=== PATIENT | female | born 1955 | race Caucasian/White ===

== ENCOUNTER 2018-11-02 06:18 | Emergency (ER) | payer OTHER ==
[2018-11-02 06:29] VITALS: BMI 31.7
[2018-11-02] MEDS ORDERED: SODIUM CHLORIDE 0.9% 1000 ML INFUS.BAG IV ONE (07:38)
[2018-11-02] MEDS ORDERED: METOCLOPRAMIDE HCL INJECTION 10 MG/2 ML VIAL IVPB ONE (07:38)
[2018-11-02 08:24] LABS: BASO % 0.3 % (0-2.0); EOS % 0.1 % (0-4.5); HEMATOCRIT 36.9 % (32.4-45.2); HEMOGLOBIN 11.8 GM/dL (10.7-15.3); LYMPH % 19.1 % (8-40); MCH 25.7 pg (25.7-33.7); MEAN CELL VOLUME 80.2 fl (80-96); MEAN PLT VOLUME 8.3 fl (7.5-11.1); MONO % 6.1 % (3.8-10.2); NEUT % 74.4 % (42.8-82.8); PLATELET COUNT 311 K/MM3 (134-434); RDW 15.4 % (11.6-15.6); WHITE BLOOD COUNT 12.2 K/mm3 (4.0-10.0)
--- NOTE | 2018-11-02 08:25 | PDOC ---
History of Present Illness - General Chief Complaint: Weakness Stated Complaint: SUGAR PROBLEM Time Seen by Provider: 11/02/18 07:30 History Source: Patient Exam Limitations: No Limitations - History of Present Illness Initial Comments: 11/02/18 08:19 63F with a PMH of breast cancer, hypertension (is noncompliant with meds), asthma, and DM who presents to the ER with 12 hour complaints of weakness. The patient states that she's had progressive generalized weakness that started last night with nausea and a headache. The patient describes a slow onset, generalized headache without changes in vision, numbness, tingling, or focal weakness. She cannot describe the headache further. She denies CP, SOB, fever, chills, abdominal pain, cough, dysuria, but admits to mild congestion. Past History - Past Medical History Allergies/Adverse Reactions: Allergies Allergy/AdvReac Type Severity Reaction Status Date / Time chocolate flavor Allergy Verified 11/02/18 06:27 sweet almond Allergy Verified 11/02/18 06:27 Home Medications: Ambulatory Orders Acetaminophen [Tylenol -] 500 mg PO BID PRN 11/02/18 Aspirin 81 mg PO DAILY 11/02/18 Fluticasone Propionate [Flovent Diskus] 2 spray IH DAILY 11/02/18 Insulin (Levemir) [Levemir Vial] 70 unit SQ DAILY 11/02/18 Metformin HCl [Glucophage] 1,000 mg PO BID 11/02/18 Montelukast Sodium [Singulair] 10 mg PO HS 11/02/18 Omeprazole 40 mg PO DAILY 11/02/18 Asthma: Yes Cancer: Yes (BREAST) COPD: No Diabetes: Yes HTN: Yes - Suicide/Smoking/Psychosocial Hx Smoking History: Never smoked Hx Alcohol Use: No Drug/Substance Use Hx: No Substance Use Type: None Hx Substance Use Treatment: No Review of Systems - Review of Systems Able to Perform ROS?: Yes Comments:: 11/02/18 10:33 GENERAL/CONSTITUTIONAL: + for generalized weakness. No fever or chills. HEAD, EYES, EARS, NOSE AND THROAT: No change in vision. No ear pain or discharge. No sore throat. CARDIOVASCULAR: No chest pain, palpitations, or lightheadedness. RESPIRATORY: No cough, wheezing, shortness of breath, or hemoptysis. GASTROINTESTINAL: + for nausea and vomiting. No abdominal pain, diarrhea, or constipation. GENITOURINARY: No dysuria, frequency, hematuria, or change in urination. MUSCULOSKELETAL: No joint or muscle swelling or pain. No neck or back pain. SKIN: No rash or lesions. NEUROLOGIC: + for h/a. No numbness, tingling, focal weakness, loss of consciousness, or change in strength/sensation. Is the patient limited Indonesian proficient: No *Physical Exam - Vital Signs Last Vital Signs Temp Pulse Resp BP Pulse Ox 97.6 F 63 16 106/71 96 11/02/18 06:45 11/02/18 06:45 11/02/18 06:45 11/02/18 06:45 11/02/18 06:45 - Physical Exam Comments: 11/02/18 10:34 GENERAL: Well developed, well nourished. Awake and alert. No acute distress. HEENT: Normocephalic, atraumatic. Hearing grossly normal. Moist mucous membranes. PERRLA, EOMI. No conjunctival pallor. Sclera are non-icteric. NECK: Supple. Full ROM. No JVD. CARDIOVASCULAR: Regular rate and rhythm. No murmurs, rubs, or gallops. PULMONARY: No evidence of respiratory distress. Lungs clear to auscultation bilaterally. No wheezing, rales or rhonchi. ABDOMINAL: Soft. Mild tenderness to deep palpation in epigastrium. Non- distended. No rebound or guarding. GENITOURINARY: No CVA tenderness bilaterally. MUSCULOSKELETAL: Normal range of motion at all joints. No bony deformities or tenderness. EXTREMITIES: No cyanosis. No clubbing. No edema. No calf tenderness or swelling. SKIN: Warm and dry. Normal capillary refill. No rashes. No jaundice. NEUROLOGICAL: Alert, awake, appropriate. Cranial nerves 2-12 grossly intact. Normal speech. Gait is normal without ataxia. PSYCHIATRIC: Cooperative. Good eye contact. Appropriate mood and affect. ED Treatment Course - LABORATORY CBC & Chemistry Diagram: 11/02/18 08:00 11/02/18 08:00 - ADDITIONAL ORDERS Additional order review: Laboratory Results 11/02/18 07:31 POC Glucometer 138 11/02/18 07:31 POC Glucometer 138 - RADIOLOGY Radiology Studies Ordered: Category Date Time Status CHEST PA & LAT [RAD] Stat Radiology 11/02/18 07:42 Ordered Medical Decision Making - Medical Decision Making 11/02/18 10:34 63F with a PMH of HTN, DM, asthma who presents with generalized weakness and PE remarkable only for very mild epigastric TTP. Incoming vitals WNL. Pt well appearing. CXR negative. Labs including UA and troponin negative. Pt has had weakness since yesterday and if ACS would have shown a troponin as of now so will r/o with 1 troponin and baseline EKG for pt. Will PO challenge and reassess. 11/02/18 11:39 Labs and CXR WNL. Pt states she feels better. Nontender abd exam. Tolerated PO. Will d/c with PCP f/u. *DC/Admit/Observation/Transfer Diagnosis at time of Disposition: Headache Qualifiers: Headache type: unspecified Headache chronicity pattern: acute headache Intractability: not intractable Qualified Code(s): R51 - Headache Nausea & vomiting Qualifiers: Vomiting type: unspecified Vomiting Intractability: unspecified Qualified Code( s): R11.2 - Nausea with vomiting, unspecified - Discharge Dispostion Disposition: HOME Condition at time of disposition: Stable Decision to Admit order: No - Referrals Referrals: Martha Connolly MD [Primary Care Provider] - - Patient Instructions Printed Discharge Instructions: DI for Viral Gastroenteritis -- Adult Additional Instructions: Your ER visit is not complete until your follow up with your primary care physician. Please follow up with your primary care physician in 1-2 days. Please return to the ER if you have any signs or symptoms of chest pain, shortness of breath, uncontrollable fever, chills, nausea, vomiting, numbness, tingling, or weakness in any part of your body, changes in vision, or slurred speech. Please take your medications as prescribed. Please return to the ER if symptoms persist, worsen, or new symptoms arise. - Post Discharge Activity
[2018-11-02 08:35] LABS: ALBUMIN 3.9 g/dl (3.4-5.0); BILIRUBIN,TOTAL 0.4 mg/dL (0.2-1); BLOOD UREA NITROGEN 18.5 mg/dL (7-18); CREATININE 0.9 mg/dL (0.55-1.3); POTASSIUM 4.4 mmol/L (3.5-5.1); TOT PROT 7.1 g/dl (6.4-8.2)
[2018-11-02] MEDS ORDERED: METOCLOPRAMIDE HCL INJECTION 10 MG/2 ML VIAL ONE (08:41)
[2018-11-02 09:17] LABS: URINE APPEARANCE Clear; URINE BILIRUBIN Negative (NEGATIVE); URINE COLOR Yellow; URINE GLUCOSE (UA) 1+ (NEGATIVE); URINE KETONE Trace (NEGATIVE); URINE LEUK ESTERASE Negative (NEGATIVE); URINE NITRITE Negative (NEGATIVE); URINE PROTEIN 1+ (NEGATIVE); URINE UROBILINOGEN 0.2 mg/dL (0.2-1.0)
[2018-11-02 09:24] LABS: EPI CELLS 1.4 /HPF (0-5/HPF); HYALINE CASTS 3.36 /lpf (0-8); URINE RBC 1.3 /hpf (0-4); URINE WBC 0.9 /hpf (0-5)
--- NOTE | 2018-11-02 09:58 | PDOC ---
Attending Attestation - Resident Resident Name: BinhJewel guthrie - ED Attending Attestation I have performed the following: I have examined & evaluated the patient, The case was reviewed & discussed with the resident, I agree w/resident's findings & plan, Exceptions are as noted - HPI HPI: 63 yo F history breast CA, HTN, asthma, DM presents with 12 hour history of weakness. She states she had nausea, multiple episodes of vomiting and diarrhea , which has improved today. C/o mild epigastric pain today. No prior history PUD , no prior endoscopy. She states she is hungry at present. - Physicial Exam PE: GENERAL: Awake, alert, and fully oriented, in no acute distress HEAD: No signs of trauma EYES: PERRLA, EOMI, sclera anicteric, conjunctiva clear ENT: Auricles normal inspection, hearing grossly normal, nares patent, oropharynx clear without exudates. Moist mucosa NECK: Normal ROM, supple, no lymphadenopathy, JVD, or masses LUNGS: Breath sounds equal, clear to auscultation bilaterally. No wheezes, and no crackles HEART: Regular rate and rhythm, normal S1 and S2, no murmurs, rubs or gallops ABDOMEN: Soft, nontender, normoactive bowel sounds. No guarding, no rebound. No masses EXTREMITIES: Normal range of motion, no edema. No clubbing or cyanosis. No cords, erythema, or tenderness NEUROLOGICAL: Cranial nerves II through XII grossly intact. Normal speech, normal gait. Motor and sensation intact SKIN: Warm, dry, normal turgor, no rashes or lesions noted. - Medical Decision Making Pt with weakness, N/V/D. Improved with IV fluids, GI cocktail. No signs of acute abdomen.
[2018-11-02] MEDS ORDERED: FAMOTIDINE 20 MG/50 ML IVPB 20 MG/50 ML MG IVPB ONE ×2 (10:15→10:30)
[2018-11-02 12:08] VITALS: BP 106/70; PULSE 60; TEMP 97.8
--- NOTE | 2018-11-03 18:53 | EKG ---
Test Reason : Blood Pressure : / mmHG Vent. Rate : 055 BPM Atrial Rate : 055 BPM P-R Int : 146 ms QRS Dur : 086 ms QT Int : 434 ms P-R-T Axes : 037 -27 -07 degrees QTc Int : 415 ms SINUS BRADYCARDIA MINIMAL VOLTAGE CRITERIA FOR LVH, MAY BE NORMAL VARIANT T WAVE ABNORMALITY, CONSIDER ANTERIOR ISCHEMIA ABNORMAL ECG WHEN COMPARED WITH ECG OF 10-DEC-2015 07:08, VENT. RATE HAS DECREASED BY 41 BPM Confirmed by BOBBY HUGHES MD ([id number]) on 11/03/2018 6:52:57 PM Referred By: Confirmed By:BOBBY HUGHES MD
== END 2018-11-02 12:11 | disposition home or self-care (01) ==
LOC: JER 06:18
PROC: 3E033GC Introduction of Other Therapeutic Substance into Peripheral Vein, Percutaneous Approach (ICD-10-PCS; principal; 2018-11-02)
PROC: 3E0337Z Introduction of Electrolytic and Water Balance Substance into Peripheral Vein, Percutaneous Approach (ICD-10-PCS; 2018-11-02)
DX: R51 Headache (principal); R11.2 Nausea with vomiting, unspecified; I10 Essential (primary) hypertension; E11.9 Type 2 diabetes mellitus without complications; J45.909 Unspecified asthma, uncomplicated
CPT/HCPCS: 36415; 71046-TC-FY; 80053; 81003; 82550; 82962; 83690; 84484; 85025; 87086; 93005; 93010; 96361; 96365; 96375; 99285-25; J7030

== ENCOUNTER 2018-11-06 13:55 | Inpatient (IN) | payer OTHER ==
[2018-11-06] MEDS ORDERED: FAMOTIDINE 20 MG/50 ML IVPB 20 MG/50 ML MG IVPB ONE ×2 (14:37→14:48)
[2018-11-06] MEDS ORDERED: SODIUM CHLORIDE 0.9% 500 ML INFUS.BAG IV ONE (14:37)
--- NOTE | 2018-11-06 14:40 | PDOC ---
History of Present Illness - General Chief Complaint: Weakness Stated Complaint: WEAKNESS Time Seen by Provider: 11/06/18 14:13 History Source: Patient Exam Limitations: No Limitations - History of Present Illness Initial Comments: 11/06/18 14:40 Flori Allen is a 63yF w PMHx of breast cancer s/p mastectomy, HTN, T2D presenting w generalized weakness. Weakness for 1 week, associated poor appetite , daily vomiting 1-3x/day, loose stools. Currently not nauseous. Was seen on 11/02 at [facility] for similar symptoms, diagnosed w gastritis. Pain unchanged from that visit. Referred from PCP today during f/u to ER for further mgmt. Denies fever, headache, cough, SOB, chest/AB pain, urinary changes. Reports feeling lonely living at home by herself, long time ago. Diagnosed w depression after . Endorses increased forgetfulness. Denies homicidal/suicidal ideation. Past History - Travel Traveled outside of the country in the last 30 days: No - Past Medical History Allergies/Adverse Reactions: Allergies Allergy/AdvReac Type Severity Reaction Status Date / Time chocolate flavor Allergy Verified 11/06/18 14:17 sweet almond Allergy Verified 11/06/18 14:17 Home Medications: Ambulatory Orders Acetaminophen [Tylenol -] 500 mg PO BID PRN 11/02/18 Aspirin 81 mg PO DAILY 11/02/18 Fluticasone Propionate [Flovent Diskus] 2 spray IH DAILY 11/02/18 Insulin (Levemir) [Levemir Vial] 70 unit SQ DAILY 11/02/18 Metformin HCl [Glucophage] 1,000 mg PO BID 11/02/18 Montelukast Sodium [Singulair] 10 mg PO HS 11/02/18 Omeprazole 40 mg PO DAILY 11/02/18 Asthma: Yes Cancer: Yes (BREAST) COPD: No Diabetes: Yes HTN: Yes - Suicide/Smoking/Psychosocial Hx Smoking History: Never smoked Have you smoked in the past 12 months: No Information on smoking cessation initiated: No Hx Alcohol Use: No Drug/Substance Use Hx: No Substance Use Type: None Hx Substance Use Treatment: No Review of Systems - Review of Systems Constitutional: Yes: Weakness. No: Chills, Fever HEENTM: No: Eye Pain, Ear Pain, Nose Pain, Throat Pain, Mouth Pain Respiratory: No: Cough, Shortness of Breath Cardiac (ROS): No: Chest Pain, Palpitations, Syncope, Chest Tightness ABD/GI: Yes: Diarrhea (loose stool), Nausea, Poor Appetite, Poor Fluid Intake, Vomiting. No: Abdominal Distended, Constipated : No: Burning, Dysuria, Discharge, Flank Pain, Hematuria, Incontinence Musculoskeletal: No: Back Pain, Joint Pain, Muscle Pain, Muscle Weakness Integumentary: No: Bruising, Change in Color, Flushing, Lesions Neurological: No: Headache, Numbness, Seizure, Tingling, Tremors Psychiatric: Yes: Depression, Change in Appetite (reduced). No: Anxiety, Frequent Crying, Sleep Pattern Change, Mood Swings Endocrine: No: Excessive Sweating, Flushing, Intolerance to Cold, Intolerance to Heat Hematologic/Lymphatic: No: Anemia, Blood Clots, Easy Bleeding *Physical Exam - Vital Signs Last Vital Signs Temp Pulse Resp BP Pulse Ox 98.1 F 70 16 90/66 100 11/06/18 14:00 11/06/18 14:00 11/06/18 14:00 11/06/18 14:00 11/06/18 14:15 - Physical Exam General Appearance: Yes: Nourished, Appropriately Dressed. No: Apparent Distress HEENT: positive: EOMI, HIGINIO, Normal Voice, Hearing Grossly Normal. negative: Pale Conjunctivae, Scleral Icterus (R), Scleral Icterus (L), Rhinorrhea, Sinus Tenderness Respiratory/Chest: positive: Lungs Clear, Normal Breath Sounds. negative: Chest Tender, Respiratory Distress, Accessory Muscle Use, Crackles, Rales, Rhonchi, Stridor Cardiovascular: positive: Regular Rhythm, Regular Rate, S1, S2. negative: Edema , Murmur Gastrointestinal/Abdominal: positive: Normal Bowel Sounds, Tender (mild discomfort epigastric region), Flat, Soft. negative: Organomegaly, Distended, Guarding, Rebound, Mass Musculoskeletal: positive: Normal Inspection Integumentary: positive: Normal Color, Dry Neurologic: positive: technical project manager II-XII NML intact, Fully Oriented, Alert, Normal Response, Responsive. negative: Sensory Deficit, Confused, Disoriented ED Treatment Course - LABORATORY CBC & Chemistry Diagram: 11/06/18 15:06 11/06/18 15:06 - RADIOLOGY Radiology Studies Ordered: Category Date Time Status CHEST PA & LAT [RAD] Stat Radiology 11/06/18 14:36 Ordered Medical Decision Making - Medical Decision Making 11/06/18 14:38 CBC CMP trop lipase TSH UA Ucx CXR EKG pepcid 1L NS RUQ US showed multiple gallbladder cholelithiasis, contracted gallbladder without cholangitis, hepatic steatosis. EKG shows sinus bradycardia w L axis deviation and nonspecific T wave flattening BG 143, UA trace ketones, 1+ protein, bilirubin w/o bacteria/WBC Flori Allen is a 63yF w PMHx of breast cancer s/p mastectomy, HTN, T2D presenting w generalized weakness and epigastric pain. Consider gastroenteritis based on epigastric discomfort and loose stools. Consider depression (4 positive criteria reduced energy/concentration/appetite/activity). Blood glucose slightly elevated, not ACS based on EKG and negative troponin. No signs of infection on UA. RUQ US showed multiple gallbladder cholelithiasis, contracted gallbladder without cholangitis, hepatic steatosis. Given pepcid and 1L NS with some symptom relief. Admit to med/surg for generalized weakness, epigastric pain, continued vomiting , cholelithiasis in setting of past cancer hx, failed outpatient mgmt PCP Alo *DC/Admit/Observation/Transfer Diagnosis at time of Disposition: Hepatic steatosis, Epigastric pain, Weakness Cholelithiasis Qualifiers: Cholelithiasis location: gallbladder Cholecystitis presence: without cholecystitis Biliary obstruction: without biliary obstruction Qualified Code(s) : K80.20 - Calculus of gallbladder without cholecystitis without obstruction Vomiting Qualifiers: Vomiting type: unspecified Vomiting Intractability: intractable Nausea presence : with nausea Qualified Code(s): R11.2 - Nausea with vomiting, unspecified - Discharge Dispostion Condition at time of disposition: Improved - Referrals Referrals: Martha Connolly MD [Primary Care Provider] - - Patient Instructions - Post Discharge Activity
[2018-11-06 16:12] LABS: BASO % 0.3 % (0-2.0); EOS % 3.1 % (0-4.5); HEMATOCRIT 39.7 % (32.4-45.2); HEMOGLOBIN 12.6 GM/dL (10.7-15.3); LYMPH % 30.9 % (8-40); MCH 25.7 pg (25.7-33.7); MCHC 31.7 g/dl (32.0-36.0); MEAN CELL VOLUME 80.9 fl (80-96); MEAN PLT VOLUME 8.8 fl (7.5-11.1); MONO % 5.6 % (3.8-10.2); NEUT % 60.1 % (42.8-82.8); PLATELET COUNT 325 K/MM3 (134-434); RBC 4.91 M/mm3 (3.60-5.2); RDW 15.2 % (11.6-15.6); WHITE BLOOD COUNT 9.6 K/mm3 (4.0-10.0)
--- NOTE | 2018-11-06 16:15 | PDOC ---
Attending Attestation - Resident Resident Name: Geoff,Maxwell - ED Attending Attestation I have performed the following: I have examined & evaluated the patient, The case was reviewed & discussed with the resident, I agree w/resident's findings & plan - HPI HPI: 11/06/18 16:09 63y/o F h/o breast ca, diabetes p/w about 1 week of progressive generalized weakness and fatigue. no syncope, but reports generalized malaise, decreased appetite, nbnb emesis yesterday. epigastric discomfort with fatigue on exertion but no cp/sob. no f/c, + wt loss over 3 months, no night sweats. followed with Dr. Prajapati today who felt she looked unwell so referred back to ED for admission. - Physicial Exam PE: 11/06/18 16:11 vss alert, nad, no jaundice or pallor slighty dry mucosa heart regular, lungs clear abd soft/nd. mild epigastric discomfort radiating to RUQ, no guarding/rebound no edema neuro nl - Medical Decision Making 11/06/18 16:15 63y/o F diabetic with nonspecific but progressive generalized weakness for one week. ddx broad, ? infectious v. metabolic, r/o dka. labs, ua ekg, cxr ruq u/s admit Heart Score/ECG Review #1 ECG reviewed & interpreted by me at: 15:01 General ECG Interpretation: Sinus Rhythm, Normal Rate (54), Normal Intervals ( qtc 426, LVH), No acute ischemic changes (nonspecific t wave flattening)
[2018-11-06 16:33] LABS: ALBUMIN 3.4 g/dl (3.4-5.0); ALK PHOS 91 U/L (45-117); ANION GAP 13 MMOL/L (8-16); BILIRUBIN,TOTAL 0.4 mg/dL (0.2-1); BLOOD UREA NITROGEN 16.3 mg/dL (7-18); CALCIUM 9.7 mg/dL (8.5-10.1); CHLORIDE 105 mmol/L (98-107); CO2 28 mmol/L (21-32); GLUCOSE,RANDOM 143 mg/dL (74-106); POTASSIUM 3.9 mmol/L (3.5-5.1); SGOT/AST 28 U/L (15-37); SGPT/ALT 52 U/L (13-61); SODIUM 147 mmol/L (136-145); TOT PROT 6.4 g/dl (6.4-8.2)
[2018-11-06 16:40] LABS: EPI CELLS 2.9 /HPF (0-5/HPF); HYALINE CASTS 21 /lpf (0-8); PH,URINE 5.5 (5.0-8.0); URINE APPEARANCE CLOUDY; URINE BACTERIA 11.3 /hpf (NEGATIVE); URINE BILIRUBIN 1+ (NEGATIVE); URINE COLOR DK YELLOW; URINE GLUCOSE (UA) TRACE (NEGATIVE); URINE KETONE TRACE (NEGATIVE); URINE LEUK ESTERASE NEGATIVE (NEGATIVE); URINE NITRITE NEGATIVE (NEGATIVE); URINE PROTEIN 1+ (NEGATIVE); URINE RBC 5 /hpf (0-4); URINE WBC 3 /hpf (0-5)
[2018-11-06] MEDS: ACETAMINOPHEN 325 MG TABLET (FP) PO PRN (21:54)
[2018-11-06] MEDS ORDERED: INSULIN (NOVOLOG) ASPART 100 UNITS/ML 10ML VIAL ONE (22:01)
[2018-11-06] MEDS: INSULIN SLIDING SCALE (NOVOLOG) 1 VIAL SQ SCH (22:04)
[2018-11-06] MEDS: SODIUM CHLORIDE 0.45% 1,000 ML IV SCH (23:00)
[2018-11-06 23:25] VITALS: BMI 30.7
--- NOTE | 2018-11-06 23:44 | PN ---
Teaching Attending Note Name of Resident: Yael Chance ATTENDING PHYSICIAN STATEMENT I saw and evaluated the patient. I reviewed the resident's note and discussed the case with the resident. I agree with the resident's findings and plan as documented. SUBJECTIVE: 63F with breast cancer s/p lumpectomy,s/p hysterectomy, hypertension, asthma, and DM c/o one week of nausea, yellowish, nonbloody vomiting, loss of appetite, general malaise, and some epigastric pain. Denied any fevers, recent travels, sick contacts or new foods. Denied any friends or family Says her symptoms have actually improved after having come to ER. Usually takes omeprazole for epigstric pain at home. OBJECTIVE: Last Vital Signs Temp Pulse Resp BP Pulse Ox 98.3 F 62 17 110/65 98 11/06/18 22:42 11/06/18 22:42 11/06/18 22:42 11/06/18 22:42 11/06/18 22:42 gen- nad, aaox3 heent -moist oral mucosa chest -s1+s2+rrr chest clear abdomen soft, nt, BS+ in 4 quadrants, nondistended imaging reviewed ekg showed sinus bradycardia and lv, left axis deviation ASSESSMENT AND PLAN: Possibly viral gastroenteritis. Patient's abdominal exam is very benign, abd u/ s showed cholelithiasis but no biliary ductal dilatation or inflammation. + hepatic steatosis- SMITH? Denied etoh use. Lipase wnl, do not suspect pancreatitis. Possibly gastritis component. Epigastric pain improved after famotidine in ER. Trop was neg and no ischemia on ekg so do not suspect acs. -med/surg -attempt clear liquid diet - if cannot tolerate, or persistent epigastric pain, vomiting, would obtain barium swallow study and possibly EGD -zofran IV prn if nausea -IV fluid hydration -protonix 40mg iv bid -tsh -a1c -resend chemistry, including, mg, phos, replace electrolytes prn -heparin sc for dvt ppx
[2018-11-06] MEDS ORDERED: FLUCONAZOLE 150 MG TABLET PO ONE (23:45)
--- NOTE | 2018-11-07 00:33 | HP ---
CHIEF COMPLAINT:generalized weakness, epigastric pain PCP:Dr. Huggins HISTORY OF PRESENT ILLNESS: Patient is a 63 year old female with past medical history of breast cancer s/p mastectomy, HTN, Type 2 DM and asthma, presented to the ED due to generalized weakness for 3 weeks accompanied by epigastric pain and loss of appetite and a 1 week history of vomiting. Patient reported she started experiencing feeling weak about 3 weeks ago accompanied by poor oral intake, intermittent episodes of loose stools, and unintentional weight loss of 7 lbs within the last month. One week ago, patient started experiencing nausea with NBNB vomiting about 3-5 times daily. Four days ago, she came to the ED, where she was diagnosed with gastritis, received IV fluids and GI cocktail and was sent home on Omeprazole and to follow up with PCP. Patient reported continuous episodes of vomiting, so she came back to the ED. Patient also reports pruritus in the genital area for a few weeks. She denies fever, chills, headache, dizziness, chest pain, SOB, urinary symptoms. At the ED, patient received pepcid and reported improvement of abdominal pain and nausea. ER course was notable for: (1)Pepcid and Iv NS bolus x1 (2) (3) Recent Travel: denies PAST MEDICAL HISTORY: breast cancer s/p mastectomy HTN Type 2 DM asthma PAST SURGICAL HISTORY: mastectomy hysterectomy Social History: Smoking:denies Alcohol:denies Drugs: denies Family History: none Allergies chocolate flavor Allergy (Verified 11/06/18 14:17) sweet almond Allergy (Verified 11/06/18 14:17) HOME MEDICATIONS: Home Medications Medication Instructions Recorded Acetaminophen [Tylenol -] 500 mg PO BID PRN 11/02/18 Aspirin 81 mg PO DAILY 11/02/18 Fluticasone Propionate [Flovent 2 spray IH DAILY 11/02/18 Diskus] Insulin (Levemir) [Levemir Vial] 70 unit SQ DAILY 11/02/18 Metformin HCl [Glucophage] 1,000 mg PO BID 11/02/18 Montelukast Sodium [Singulair] 10 mg PO HS 11/02/18 Omeprazole 40 mg PO DAILY 11/02/18 REVIEW OF SYSTEMS CONSTITUTIONAL: Absent: fever, chills, diaphoresis, generalized weakness, malaise, loss of appetite, weight change HEENT: Absent: rhinorrhea, nasal congestion, throat pain, throat swelling, difficulty swallowing, mouth swelling, ear pain, eye pain, visual changes CARDIOVASCULAR: Absent: chest pain, syncope, palpitations, irregular heart rate, lightheadedness , peripheral edema RESPIRATORY: Absent: cough, shortness of breath, dyspnea with exertion, orthopnea, wheezing, stridor, hemoptysis GASTROINTESTINAL:abdominal pain, nausea, vomiting Absent: abdominal distension, diarrhea, constipation, melena, hematochezia GENITOURINARY: Absent: dysuria, frequency, urgency, hesitancy, hematuria, flank pain, genital pain MUSCULOSKELETAL: Absent: myalgia, arthralgia, joint swelling, back pain, neck pain SKIN: Absent: rash, itching, pallor HEMATOLOGIC/IMMUNOLOGIC: Absent: easy bleeding, easy bruising, lymphadenopathy, frequent infections ENDOCRINE: Absent: unexplained weight gain, unexplained weight loss, heat intolerance, cold intolerance NEUROLOGIC: Absent: headache, focal weakness or paresthesias, dizziness, unsteady gait, seizure, mental status changes, bladder or bowel incontinence PSYCHIATRIC: Absent: anxiety, depression, suicidal or homicidal ideation, hallucinations. PHYSICAL EXAMINATION Vital Signs - 24 hr 11/06/18 11/06/18 11/06/18 14:00 14:15 19:15 Temperature 98.1 F 98.0 F Pulse Rate 70 Pulse Rate [ 66 Right] Respiratory 16 Rate Blood Pressure 90/66 Blood Pressure 118/73 [Right Arm] O2 Sat by Pulse 98 100 99 Oximetry (%) 11/06/18 11/06/18 19:25 22:42 Temperature 98.2 F 98.3 F Pulse Rate 62 Pulse Rate [ 61 Right] Respiratory 16 17 Rate Blood Pressure 110/65 Blood Pressure 102/69 [Right Arm] O2 Sat by Pulse 99 98 Oximetry (%) GENERAL: Awake, alert, and fully oriented, in no acute distress. HEAD: Normal with no signs of trauma. EYES: PERRLA, EOMI, sclera anicteric, conjunctiva clear. EARS, NOSE, THROAT: Dry mucous membranes. NECK: Normal range of motion, supple without lymphadenopathy, JVD, or masses. LUNGS: Breath sounds equal, clear to auscultation bilaterally. HEART: Regular rate and rhythm, normal S1 and S2 without murmur, rub or gallop. ABDOMEN: Soft, +epigastric tenderness on deep palpation, not distended, normoactive bowel sounds. MUSCULOSKELETAL: Normal range of motion at all joints. UPPER EXTREMITIES: 2+ pulses, warm, well-perfused. No peripheral edema. LOWER EXTREMITIES: 2+ pulses, warm, well-perfused.No peripheral edema. NEUROLOGICAL: Cranial nerves II-XII intact. Normal speech. Normal gait. PSYCHIATRIC: Cooperative. Good eye contact. Appropriate mood and affect. SKIN: Warm, dry, normal turgor, no rashes or lesions noted. Laboratory Results - last 24 hr 11/06/18 11/06/18 11/06/18 15:06 15:06 15:06 WBC 9.6 RBC 4.91 Hgb 12.6 Hct 39.7 MCV 80.9 MCH 25.7 MCHC 31.7 L RDW 15.2 Plt Count 325 MPV 8.8 Absolute Neuts (auto) 5.8 Neutrophils % 60.1 Lymphocytes % 30.9 D Monocytes % 5.6 Eosinophils % 3.1 D Basophils % 0.3 Nucleated RBC % 0 Sodium 147 H Potassium 3.9 Chloride 105 Carbon Dioxide 28 Anion Gap 13 BUN 16.3 Creatinine 1.0 Est GFR (CKD-EPI)AfAm 68.95 Est GFR (CKD-EPI)NonAf 59.49 POC Glucometer Random Glucose 143 H Calcium 9.7 Total Bilirubin 0.4 AST 28 ALT 52 Alkaline Phosphatase 91 Creatine Kinase 45 Troponin I < 0.02 Total Protein 6.4 Albumin 3.4 Lipase 87 TSH Urine Color Urine Appearance Urine pH Ur Specific [place] Urine Protein Urine Glucose (UA) Urine Ketones Urine Blood Urine Nitrite Urine Bilirubin Urine Urobilinogen Ur Leukocyte Esterase Urine WBC (Auto) Urine RBC (Auto) Urine Casts (Auto) U Pathogenic Cast Auto U Epithel Cells (Auto) Urine Bacteria (Auto) 11/06/18 11/06/18 11/06/18 15:06 15:06 22:00 WBC RBC Hgb Hct MCV MCH MCHC RDW Plt Count MPV Absolute Neuts (auto) Neutrophils % Lymphocytes % Monocytes % Eosinophils % Basophils % Nucleated RBC % Sodium Potassium Chloride Carbon Dioxide Anion Gap BUN Creatinine Est GFR (CKD-EPI)AfAm Est GFR (CKD-EPI)NonAf POC Glucometer 225 Random Glucose Calcium Total Bilirubin AST ALT Alkaline Phosphatase Creatine Kinase Troponin I Total Protein Albumin Lipase TSH 3.67 Urine Color Dk yellow Urine Appearance Cloudy Urine pH 5.5 Ur Specific [place] 1.044 H Urine Protein 1+ H Urine Glucose (UA) Trace Urine Ketones Trace H Urine Blood Negative Urine Nitrite Negative Urine Bilirubin 1+ H Urine Urobilinogen 1.0 Ur Leukocyte Esterase Negative Urine WBC (Auto) 3 Urine RBC (Auto) 5 Urine Casts (Auto) 21 U Pathogenic Cast Auto None U Epithel Cells (Auto) 2.9 Urine Bacteria (Auto) 11.3 ASSESSMENT/PLAN: Patient is a 63 year old female with past medical history of breast cancer s/p mastectomy, HTN, Type 2 DM and asthma, presented to the ED due to generalized weakness for 3 weeks accompanied by epigastric pain and loss of appetite and a 1 week history of vomiting. #Epigastric pain, possibly gastritis -RUQ US: cholelithiasis, gallbladder contracted - physiologic vs chronic cholecystitis, diffuse hepatic steatosis -Epigastric pain improved after Pepcid was given -IV fluid hydration -Clear liquid diet for now, advance as tolerated -Zofran PRN for nausea -IV Protonix 40mg BID #HTN - #IDDM -Continue Insulin levemir 7u HS -Insulin sliding scale implemented -BGM ACHS -HbA1c ordered #FEN -Iv 1/2 NS at 83cc/hr -Electrolyte wnl, routine bmp monitoring -Clear liquid diet #Prophylaxis -Lovenox 40mg sq daily #Disposition -full code -admit to med surg Visit type - Emergency Visit Emergency Visit: Yes ED Registration Date: 11/06/18 Care time: The patient presented to the Emergency Department on the above date and was hospitalized for further evaluation of their emergent condition. - New Patient This patient is new to me today: Yes Date on this admission: 11/06/18 - Critical Care Critical Care patient: No ATTENDING PHYSICIAN STATEMENT I saw and evaluated the patient. I reviewed the resident's note and discussed the case with the resident. I agree with the resident's findings and plan as documented. SUBJECTIVE: OBJECTIVE: ASSESSMENT AND PLAN:
[2018-11-07] MEDS ORDERED: ONDANSETRON 4 MG/2 ML VIAL IVPUSH PRN (04:31)
[2018-11-07] MEDS: INSULIN SLIDING SCALE (NOVOLOG) 1 VIAL SQ SCH ×4 (06:15→21:52)
[2018-11-07 07:39] LABS: BASO % 0.3 % (0-2.0); EOS % 5.2 % (0-4.5); HEMOGLOBIN 11.4 GM/dL (10.7-15.3); LYMPH % 43.5 % (8-40); MCH 26.1 pg (25.7-33.7); MCHC 32.5 g/dl (32.0-36.0); MEAN CELL VOLUME 80.2 fl (80-96); PLATELET COUNT 280 K/MM3 (134-434); RBC 4.36 M/mm3 (3.60-5.2); WHITE BLOOD COUNT 8.4 K/mm3 (4.0-10.0)
[2018-11-07 08:17] LABS: BILIRUBIN,TOTAL 0.7 mg/dL (0.2-1); BLOOD UREA NITROGEN 12.1 mg/dL (7-18); CALCIUM 8.8 mg/dL (8.5-10.1); CREATININE 0.8 mg/dL (0.55-1.3); MAGNESIUM 1.5 mg/dL (1.8-2.4); PHOSPHOROUS 3.2 mg/dL (2.5-4.9); POTASSIUM 3.7 mmol/L (3.5-5.1); TOT PROT 5.6 g/dl (6.4-8.2)
[2018-11-07] MEDS ORDERED: MAGNESIUM SULF 50% (8.12 MEQ/2 ML-1 GM VIAL) IVPB ONE (08:58)
[2018-11-07] MEDS: PANTOPRAZOLE SODIUM 40 MG VIAL IVPUSH SCH ×2 (09:45→21:55)
[2018-11-07] MEDS: ENOXAPARIN NA (PORCINE) 40 MG/0.4 ML DISP.SYRIN SQ SCH (09:45)
--- NOTE | 2018-11-07 11:04 | EKG ---
Test Reason : Blood Pressure : / mmHG Vent. Rate : 054 BPM Atrial Rate : 054 BPM P-R Int : 144 ms QRS Dur : 086 ms QT Int : 450 ms P-R-T Axes : 043 -30 001 degrees QTc Int : 426 ms SINUS BRADYCARDIA LEFT AXIS DEVIATION MINIMAL VOLTAGE CRITERIA FOR LVH, MAY BE NORMAL VARIANT NONSPECIFIC T WAVE ABNORMALITY ABNORMAL ECG WHEN COMPARED WITH ECG OF 02-NOV-2018 08:00, NONSPECIFIC T WAVE ABNORMALITY HAS REPLACED INVERTED T WAVES IN ANTERIOR LEADS Confirmed by CHARLES MADERA, SHON ([id number]) on 11/07/2018 11:03:52 AM Referred By: Confirmed By:SHON SOTO MD
[2018-11-07] MEDS ORDERED: PT OWN MED DRAWER 7, Y5N ONE (11:58)
[2018-11-07] MEDS: HYDROCORTISONE 2.5% TOPICAL CREAM 30 GM TUBE PR SCH (12:02)
--- NOTE | 2018-11-07 13:51 | PN ---
Physical Exam: SUBJECTIVE: 63 y/o female with PMH breast cancer s/p mastectomy, HTN, DM, and asthma, whom presented to the ED d/t generalized weakness, epigastric pain, and vomitting. Pt seen at bedside today, tolerating diet better. Denies abd pain. Pt denies NVFD. OBJECTIVE: Vital Signs Period Temp Pulse Resp BP Sys/Guillermo Pulse Ox Last 24 Hr 97.9 F-98.4 F 53-70 16-20 90-133/65-88 98-100 GENERAL: AOx3, in no acute distress. HEAD: NCAT EYES: EDILSON, EOMI, conjunctiva clear. ENT: Ears normal, nares patent, oropharynx clear without exudates. Moist mucous membranes. NECK: Normal range of motion, supple without lymphadenopathy, JVD, or masses. LUNGS: CTAB. No wheezes, and no crackles. No accessory muscle use. HEART: RRR s1 s2 ABDOMEN: (+) tenderness to deep palpation LUQ. Soft, BS present in all 4 quadrants, non-distended, no JVD, MUSCULOSKELETAL: No bony deformities or tenderness. No CVA tenderness. UPPER EXTREMITIES: 2+ pulses, warm, well-perfused. No cyanosis. No clubbing. No peripheral edema. LOWER EXTREMITIES: 2+ pulses, warm, well-perfused. No calf tenderness. No peripheral edema. NEUROLOGICAL: Cranial nerves II-XII intact. Normal speech. Gait not appreciated. PSYCHIATRIC: Cooperative. Good eye contact. Appropriate mood and affect. SKIN: Warm, dry, normal turgor, no rashes or lesions noted, normal capillary refill. Laboratory Results - last 24 hr 11/06/18 11/06/18 11/06/18 15:06 15:06 15:06 WBC 9.6 RBC 4.91 Hgb 12.6 Hct 39.7 MCV 80.9 MCH 25.7 MCHC 31.7 L RDW 15.2 Plt Count 325 MPV 8.8 Absolute Neuts (auto) 5.8 Neutrophils % 60.1 Lymphocytes % 30.9 D Monocytes % 5.6 Eosinophils % 3.1 D Basophils % 0.3 Nucleated RBC % 0 Sodium 147 H Potassium 3.9 Chloride 105 Carbon Dioxide 28 Anion Gap 13 BUN 16.3 Creatinine 1.0 Est GFR (CKD-EPI)AfAm 68.95 Est GFR (CKD-EPI)NonAf 59.49 POC Glucometer Random Glucose 143 H Hemoglobin A1c % Calcium 9.7 Phosphorus Magnesium Total Bilirubin 0.4 AST 28 ALT 52 Alkaline Phosphatase 91 Creatine Kinase 45 Troponin I < 0.02 Total Protein 6.4 Albumin 3.4 Lipase 87 TSH Urine Color Urine Appearance Urine pH Ur Specific [place] Urine Protein Urine Glucose (UA) Urine Ketones Urine Blood Urine Nitrite Urine Bilirubin Urine Urobilinogen Ur Leukocyte Esterase Urine WBC (Auto) Urine RBC (Auto) Urine Casts (Auto) U Pathogenic Cast Auto U Epithel Cells (Auto) Urine Bacteria (Auto) 11/06/18 11/06/18 11/06/18 15:06 15:06 22:00 WBC RBC Hgb Hct MCV MCH MCHC RDW Plt Count MPV Absolute Neuts (auto) Neutrophils % Lymphocytes % Monocytes % Eosinophils % Basophils % Nucleated RBC % Sodium Potassium Chloride Carbon Dioxide Anion Gap BUN Creatinine Est GFR (CKD-EPI)AfAm Est GFR (CKD-EPI)NonAf POC Glucometer 225 Random Glucose Hemoglobin A1c % Calcium Phosphorus Magnesium Total Bilirubin AST ALT Alkaline Phosphatase Creatine Kinase Troponin I Total Protein Albumin Lipase TSH 3.67 Urine Color Dk yellow Urine Appearance Cloudy Urine pH 5.5 Ur Specific [place] 1.044 H Urine Protein 1+ H Urine Glucose (UA) Trace Urine Ketones Trace H Urine Blood Negative Urine Nitrite Negative Urine Bilirubin 1+ H Urine Urobilinogen 1.0 Ur Leukocyte Esterase Negative Urine WBC (Auto) 3 Urine RBC (Auto) 5 Urine Casts (Auto) 21 U Pathogenic Cast Auto None U Epithel Cells (Auto) 2.9 Urine Bacteria (Auto) 11.3 11/07/18 11/07/18 11/07/18 05:30 05:30 05:30 WBC 8.4 RBC 4.36 Hgb 11.4 Hct 35.0 MCV 80.2 MCH 26.1 MCHC 32.5 RDW 15.0 Plt Count 280 MPV 9.0 Absolute Neuts (auto) 3.8 Neutrophils % 45.0 D Lymphocytes % 43.5 H D Monocytes % 6.0 Eosinophils % 5.2 H Basophils % 0.3 Nucleated RBC % 0 Sodium 142 Potassium 3.7 Chloride 106 Carbon Dioxide 29 Anion Gap 8 BUN 12.1 Creatinine 0.8 Est GFR (CKD-EPI)AfAm 90.30 Est GFR (CKD-EPI)NonAf 77.91 POC Glucometer Random Glucose 150 H Hemoglobin A1c % 8.5 H Calcium 8.8 Phosphorus 3.2 Magnesium 1.5 L Total Bilirubin 0.7 AST 21 ALT 41 Alkaline Phosphatase 80 Creatine Kinase Troponin I Total Protein 5.6 L Albumin 3.0 L Lipase TSH 3.48 Urine Color Urine Appearance Urine pH Ur Specific [place] Urine Protein Urine Glucose (UA) Urine Ketones Urine Blood Urine Nitrite Urine Bilirubin Urine Urobilinogen Ur Leukocyte Esterase Urine WBC (Auto) Urine RBC (Auto) Urine Casts (Auto) U Pathogenic Cast Auto U Epithel Cells (Auto) Urine Bacteria (Auto) 11/07/18 11/07/18 05:48 11:48 WBC RBC Hgb Hct MCV MCH MCHC RDW Plt Count MPV Absolute Neuts (auto) Neutrophils % Lymphocytes % Monocytes % Eosinophils % Basophils % Nucleated RBC % Sodium Potassium Chloride Carbon Dioxide Anion Gap BUN Creatinine Est GFR (CKD-EPI)AfAm Est GFR (CKD-EPI)NonAf POC Glucometer 156 189 Random Glucose Hemoglobin A1c % Calcium Phosphorus Magnesium Total Bilirubin AST ALT Alkaline Phosphatase Creatine Kinase Troponin I Total Protein Albumin Lipase TSH Urine Color Urine Appearance Urine pH Ur Specific [place] Urine Protein Urine Glucose (UA) Urine Ketones Urine Blood Urine Nitrite Urine Bilirubin Urine Urobilinogen Ur Leukocyte Esterase Urine WBC (Auto) Urine RBC (Auto) Urine Casts (Auto) U Pathogenic Cast Auto U Epithel Cells (Auto) Urine Bacteria (Auto) Active Medications Acetaminophen (Tylenol -) 650 mg PO Q6H PRN PRN Reason: PAIN OR FEVER Last Admin: 11/07/18 20:15 Dose: 650 mg Enoxaparin Sodium (Lovenox -) 40 mg SQ DAILY [facility] Last Admin: 11/07/18 09:45 Dose: 40 mg Hydrocortisone (Anusol 2.5% Hc Cream -) 1 applic [place] DAILY [facility] Last Admin: 11/07/18 12:02 Dose: 1 applic Sodium Chloride (1/2 Normal Saline) 1,000 mls @ 83 mls/hr IV ASDIR MARGUERITE Last Admin: 11/07/18 17:49 Dose: 83 mls/hr Insulin Aspart (Novolog Vial Sliding Scale -) 1 vial SQ ACHS [facility]; Protocol Last Admin: 11/08/18 06:08 Dose: 2 units Insulin Detemir (Levemir Vial) 7 units SQ HS [facility] Last Admin: 11/07/18 21:53 Dose: 7 units Ondansetron HCl (Zofran Injection) 4 mg IVPUSH Q6H PRN PRN Reason: NAUSEA Pantoprazole Sodium (Protonix Iv) 40 mg IVPUSH BID MARGUERITE Last Admin: 11/07/18 21:55 Dose: 40 mg ASSESSMENT/PLAN: 63 y/o female with PMH asthma, DM, Breast Cancer s/p lumpectomy, s/p hysterectomy, complains of epigastric pain/nausea/vomiting/diarrhea. # Viral gastroenteritis +/- gastritis - Abdominal US: Cholelithiasis, contracted GB, hepatic steatosis - Clear liquid diet, IV fluids - Stool cx and C diff. - Trial of PPI and conservative management - If no improvement, consult GI for GB/Gallstone findings and possible EGD. # DM - Uncontrolled, A1C 8.5 - Hold home regimen for ISS (levemir/novolog) - Once oral intake resumes, up-titrate levemir # Asthma - Cont. home regimen: flovent diskus and montelukast. # Hemorrhoids - PrepH topical ointment. # Hypomagnesemia - Repeleted - F/u values # F/E/N - NS - Cont. to monitor - Advance diet as tolerated # DVT prophylaxis - Lovenox SQ Trevon Knott MD Visit type - Emergency Visit Emergency Visit: No - New Patient This patient is new to me today: Yes Date on this admission: 11/08/18 - Critical Care Critical Care patient: No - Discharge Referral Referred to [facility] No ATTENDING PHYSICIAN STATEMENT I saw and evaluated the patient. I reviewed the resident's note and discussed the case with the resident. I agree with the resident's findings and plan as documented. SUBJECTIVE: OBJECTIVE: ASSESSMENT AND PLAN:
[2018-11-07] MEDS: SODIUM CHLORIDE 0.45% 1,000 ML IV SCH ×2 (17:49→23:50)
--- NOTE | 2018-11-07 19:13 | PN ---
Teaching Attending Note Name of Resident: Trevon Knott ATTENDING PHYSICIAN STATEMENT I saw and evaluated the patient. I reviewed the resident's note and discussed the case with the resident. I agree with the resident's findings and plan as documented. SUBJECTIVE: Complains of ongoing epigastric abdominal pain/nausea/diarrhea. Vomiting resolving. No fever/chills. OBJECTIVE: Afebrile, Hemodynamically Stable. Last Vital Signs Temp Pulse Resp BP Pulse Ox 98.3 F 56 L 18 118/71 99 11/07/18 18:00 11/07/18 18:00 11/07/18 18:00 11/07/18 18:00 11/07/18 09:00 HEENT - Atraumatic, Normocephalic. Heart - S1, S2, RRR Lungs - clear to auscultation Abdomen - soft, epigastric tenderness. Bowel Sounds normal. Extremities - No edema, no calf tenderness. Laboratory Results - last 24 hr 11/06/18 11/06/18 11/07/18 15:06 22:00 05:30 WBC 8.4 RBC 4.36 Hgb 11.4 Hct 35.0 MCV 80.2 MCH 26.1 MCHC 32.5 RDW 15.0 Plt Count 280 MPV 9.0 Absolute Neuts (auto) 3.8 Neutrophils % 45.0 D Lymphocytes % 43.5 H D Monocytes % 6.0 Eosinophils % 5.2 H Basophils % 0.3 Nucleated RBC % 0 Sodium Potassium Chloride Carbon Dioxide Anion Gap BUN Creatinine Est GFR (CKD-EPI)AfAm Est GFR (CKD-EPI)NonAf POC Glucometer 225 Random Glucose Hemoglobin A1c % Calcium Phosphorus Magnesium Total Bilirubin AST ALT Alkaline Phosphatase Total Protein Albumin TSH U Pathogenic Cast Auto None 11/07/18 11/07/18 11/07/18 05:30 05:30 05:48 WBC RBC Hgb Hct MCV MCH MCHC RDW Plt Count MPV Absolute Neuts (auto) Neutrophils % Lymphocytes % Monocytes % Eosinophils % Basophils % Nucleated RBC % Sodium 142 Potassium 3.7 Chloride 106 Carbon Dioxide 29 Anion Gap 8 BUN 12.1 Creatinine 0.8 Est GFR (CKD-EPI)AfAm 90.30 Est GFR (CKD-EPI)NonAf 77.91 POC Glucometer 156 Random Glucose 150 H Hemoglobin A1c % 8.5 H Calcium 8.8 Phosphorus 3.2 Magnesium 1.5 L Total Bilirubin 0.7 AST 21 ALT 41 Alkaline Phosphatase 80 Total Protein 5.6 L Albumin 3.0 L TSH 3.48 U Pathogenic Cast Auto 11/07/18 11:48 WBC RBC Hgb Hct MCV MCH MCHC RDW Plt Count MPV Absolute Neuts (auto) Neutrophils % Lymphocytes % Monocytes % Eosinophils % Basophils % Nucleated RBC % Sodium Potassium Chloride Carbon Dioxide Anion Gap BUN Creatinine Est GFR (CKD-EPI)AfAm Est GFR (CKD-EPI)NonAf POC Glucometer 189 Random Glucose Hemoglobin A1c % Calcium Phosphorus Magnesium Total Bilirubin AST ALT Alkaline Phosphatase Total Protein Albumin TSH U Pathogenic Cast Auto Current Medications Generic Name Dose Route Start Last Admin Trade Name Freq PRN Reason Stop Dose Admin Acetaminophen 650 mg 11/06/18 20:26 11/06/18 21:54 Tylenol - PO 650 mg Q6H PRN Administration PAIN OR FEVER Enoxaparin Sodium 40 mg 11/07/18 10:00 11/07/18 09:45 Lovenox - SQ 40 mg DAILY MARGUERITE Administration Hydrocortisone 1 applic 11/07/18 11:00 11/07/18 12:02 Anusol 2.5% Hc Cream - [place] 1 applic DAILY MARGUERITE Administration Sodium Chloride 1,000 mls @ 83 mls/hr 11/06/18 23:45 11/07/18 17:49 1/2 Normal Saline IV 83 mls/hr ASDIR MARGUERITE Administration Insulin Aspart 1 vial 11/06/18 22:00 11/07/18 17:48 Novolog Vial Sliding Scale - SQ Not Given ACHS [facility] Protocol Insulin Detemir 7 units 11/07/18 22:00 Levemir Vial SQ HS [facility] Ondansetron HCl 4 mg 11/07/18 04:31 Zofran Injection IVPUSH Q6H PRN NAUSEA Pantoprazole Sodium 40 mg 11/07/18 10:00 11/07/18 09:45 Protonix Iv IVPUSH 40 mg BID MARGUERITE Administration Home Medications Medication Instructions Recorded Acetaminophen [Tylenol -] 500 mg PO BID PRN 11/02/18 Aspirin 81 mg PO DAILY 11/02/18 Fluticasone Propionate [Flovent 2 spray IH DAILY 11/02/18 Diskus] Insulin (Levemir) [Levemir Vial] 70 unit SQ DAILY 11/02/18 Metformin HCl [Glucophage] 1,000 mg PO BID 11/02/18 Montelukast Sodium [Singulair] 10 mg PO HS 11/02/18 Omeprazole 40 mg PO DAILY 11/02/18 Glipizide/Metformin HCl 2 each PO BID 11/07/18 [Glipizide-Metformin 5-500 mg] ASSESSMENT AND PLAN: 63 year old female with history of Asthma, DM 2, Breast Cancer s/p lumpectomy, s /p hysterectomy, complains of epigastric pain/nausea/vomiting/diarrhea. 1. Viral Gastroenteritis +/- Gastritis Abdominal US - Cholelithiasis, contracted GB, Hepatic Steatosis Clear liquid diet, IV fluids. Stool for cx and Cdiff. Trial of PPI and conservative management. If no improvement, will consider GI consult for GB/Gallstone findings and possible EGD. 2. DM 2 - Uncontrolled, A1C 8.5. Hold oral anti-hyperglycemics. Maintain on Levemir/Novolog sliding scale. Once oral intake resumes, will up-titrate Levemir. 3. Asthma - Stable. Continue Flovent Diskus and Montelukast. 4. Hemorrhoids - PrepH topical ointment. 5. Hypomagnesemia - will repelete. DVT Px - Lovenox SQ
[2018-11-07] MEDS: ACETAMINOPHEN 325 MG TABLET (FP) PO PRN (20:15)
[2018-11-07] MEDS ORDERED: INSULIN (NOVOLOG) ASPART 100 UNITS/ML 10ML VIAL ONE (21:47)
[2018-11-07] MEDS ORDERED: INSULIN (LEVEMIR) 100 UNITS/ML UNITS SQ SCH (22:00)
[2018-11-08] MEDS ORDERED: PT OWN MED DRAWER 7, Y5N ONE ×2 (05:44)
[2018-11-08] MEDS ORDERED: INSULIN (NOVOLOG) ASPART 100 UNITS/ML 10ML VIAL ONE ×3 (05:45→06:44)
[2018-11-08] MEDS: INSULIN SLIDING SCALE (NOVOLOG) 1 VIAL SQ SCH ×2 (06:08→11:50)
[2018-11-08 08:19] LABS: WHITE BLOOD COUNT 5.9 K/mm3 (4.0-10.0)
[2018-11-08 08:20] LABS: BASO % 0.8 % (0-2.0); EOS % 5.7 % (0-4.5); HEMATOCRIT 36.4 % (32.4-45.2); HEMOGLOBIN 11.8 GM/dL (10.7-15.3); LYMPH % 44.1 % (8-40); MCH 25.9 pg (25.7-33.7); MCHC 32.4 g/dl (32.0-36.0); MEAN CELL VOLUME 80.1 fl (80-96); MONO % 6.4 % (3.8-10.2); PLATELET COUNT 290 K/MM3 (134-434); RBC 4.55 M/mm3 (3.60-5.2); RDW 15.3 % (11.6-15.6)
[2018-11-08 08:36] LABS: ALBUMIN 3.3 g/dl (3.4-5.0); BILIRUBIN,TOTAL 0.5 mg/dL (0.2-1); BLOOD UREA NITROGEN 7.2 mg/dL (7-18); CALCIUM 9.4 mg/dL (8.5-10.1); CREATININE 0.9 mg/dL (0.55-1.3); PHOSPHOROUS 2.8 mg/dL (2.5-4.9); TOT PROT 6.1 g/dl (6.4-8.2)
[2018-11-08] MEDS: PANTOPRAZOLE SODIUM 40 MG VIAL IVPUSH SCH (09:21)
[2018-11-08] MEDS: ENOXAPARIN NA (PORCINE) 40 MG/0.4 ML DISP.SYRIN SQ SCH (09:21)
[2018-11-08] MEDS: HYDROCORTISONE 2.5% TOPICAL CREAM 30 GM TUBE PR SCH (09:21)
[2018-11-08] MEDS: ACETAMINOPHEN 325 MG TABLET (FP) PO PRN (09:24)
--- NOTE | 2018-11-08 14:28 | DS ---
Physical Exam: SUBJECTIVE: 63 y/o female with PMH breast cancer s/p mastectomy, HTN, DM, and asthma, whom presented to the ED d/t generalized weakness, epigastric pain, and vomitting. Pt seen at bedside today, tolerating regular diet w/o complaint. Denies abd pain. Pt denies NVFD. OBJECTIVE: Vital Signs Period Temp Pulse Resp BP Sys/Guillermo Pulse Ox Last 24 Hr 98.1 F-98.5 F 56-74 18-18 100-118/58-71 98 PHYSICAL EXAM GENERAL: AOx3, in no acute distress. HEAD: NCAT EYES: EDILSON, EOMI, conjunctiva clear. ENT: Ears normal, nares patent, oropharynx clear without exudates. Moist mucous membranes. NECK: Normal range of motion, supple without lymphadenopathy, JVD, or masses. LUNGS: CTAB. No wheezes, and no crackles. No accessory muscle use. HEART: RRR s1 s2 ABDOMEN: no tenderness, soft, BS present in all 4 quadrants, non-distended, no JVD, MUSCULOSKELETAL: No bony deformities or tenderness. No CVA tenderness. UPPER EXTREMITIES: 2+ pulses, warm, well-perfused. No cyanosis. No clubbing. No peripheral edema. LOWER EXTREMITIES: 2+ pulses, warm, well-perfused. No calf tenderness. No peripheral edema. NEUROLOGICAL: Cranial nerves II-XII intact. Normal speech. Gait not appreciated. PSYCHIATRIC: Cooperative. Good eye contact. Appropriate mood and affect. SKIN: Warm, dry, normal turgor, no rashes or lesions noted, normal capillary refill. LABS Laboratory Results - last 24 hr 11/07/18 11/08/18 11/08/18 21:52 06:06 06:50 WBC 5.9 RBC 4.55 Hgb 11.8 Hct 36.4 MCV 80.1 MCH 25.9 MCHC 32.4 RDW 15.3 Plt Count 290 MPV 9.0 Absolute Neuts (auto) 2.6 Neutrophils % 43.0 Lymphocytes % 44.1 H Monocytes % 6.4 Eosinophils % 5.7 H Basophils % 0.8 Nucleated RBC % 0 Sodium Potassium Chloride Carbon Dioxide Anion Gap BUN Creatinine Est GFR (CKD-EPI)AfAm Est GFR (CKD-EPI)NonAf POC Glucometer 135 173 Random Glucose Calcium Phosphorus Magnesium Total Bilirubin AST ALT Alkaline Phosphatase Total Protein Albumin 11/08/18 11/08/18 06:50 11:19 WBC RBC Hgb Hct MCV MCH MCHC RDW Plt Count MPV Absolute Neuts (auto) Neutrophils % Lymphocytes % Monocytes % Eosinophils % Basophils % Nucleated RBC % Sodium 145 Potassium 4.0 Chloride 109 H Carbon Dioxide 29 Anion Gap 7 L BUN 7.2 Creatinine 0.9 Est GFR (CKD-EPI)AfAm 78.32 Est GFR (CKD-EPI)NonAf 67.57 POC Glucometer 283 Random Glucose 172 H Calcium 9.4 Phosphorus 2.8 Magnesium 2.0 Total Bilirubin 0.5 AST 23 ALT 44 Alkaline Phosphatase 84 Total Protein 6.1 L Albumin 3.3 L HOSPITAL COURSE: Date of Admission:11/06/18 63 y/o female with PMH asthma, DM, Breast Cancer s/p lumpectomy, s/p hysterectomy, whom came to ED c/o of epigastric pain/nausea/vomiting/diarrhea. Pt admitted for viral gastroenteritis +/- gastritis. CXR NEG. Abdominal US findings of cholelithiasis, contracted GB, and hepatic steatosis. Stool cx and C diff. NEG. Pt put on PPI and conservative management. Pt was started on clear liquid diet and IV fluids initially and progressed w/o concern to full regular diet. While in the hospital DM home regimen d/c for ISS. Asthma home regimen continued: flovent diskus and montelukast. During the stay pt's hemorrhoids worsened but relieved by PrepH topical ointment. Asymptomatic hypomagnesemia found and repleted. Pt dc to home. Date of Discharge: 11/08/18 Minutes to complete discharge: 40 Discharge Summary Reason For Visit: WEAKNESS EPIGASTRIC VOMITING Current Active Problems Cholelithiasis (Acute) Epigastric pain (Acute) Hepatic steatosis (Acute) Vomiting (Acute) Weakness (Acute) Condition: Stable - Instructions Diet, Activity, Other Instructions: YOUR VISIT You came to the hospital because you were feeling weak, experiencing abdominal pain, and were vomiting. You were admitted to the hospital for care of these symptoms. You received IV fluids and pain medication. Imaging showed that your gall bladder has stones but you do not have symptoms at this moment. You also experienced hemorrhoids and were treated with a medicated cream. Your symptoms have improved and you may now return home. MEDICATIONS Please continue to take your home medications as prescribed. ADDITIONAL CARE Please make an appointment to see your primary care provider, Dr. Dary Hollis, 1 week from today. ADDITIONAL INFORMATION Please call 911 or come directly to the emergency department if you experience unusual headache, vision change, shortness of breath, chest pain, numbness, tingling, loss of alertness/awareness, loss of function, unusual bleeding or any alarming symptoms. Referrals: Martha Connolly MD [Primary Care Provider] - Disposition: HOME - Home Medications Comprehensive Discharge Medication List: Ambulatory Orders Acetaminophen [Tylenol -] 500 mg PO BID PRN 11/02/18 Aspirin 81 mg PO DAILY 11/02/18 Fluticasone Propionate [Flovent Diskus] 2 spray IH DAILY 11/02/18 Insulin (Levemir) [Levemir Vial] 70 unit SQ DAILY 11/02/18 Metformin HCl [Glucophage] 1,000 mg PO BID 11/02/18 Montelukast Sodium [Singulair] 10 mg PO HS 11/02/18 Omeprazole 40 mg PO DAILY 11/02/18 Glipizide/Metformin HCl [Glipizide-Metformin 5-500 mg] 2 each PO BID 11/07/18 This patient is new to me today: No Emergency Visit: No Critical Care patient: No - Discharge Referral Referred to [facility] No ATTENDING PHYSICIAN STATEMENT I saw and evaluated the patient. I reviewed the resident's note and discussed the case with the resident. I agree with the resident's findings and plan as documented. SUBJECTIVE: OBJECTIVE: ASSESSMENT AND PLAN:
[2018-11-08 15:08] VITALS: BP 113/74; PULSE 58; TEMP 98.5
--- NOTE | 2018-11-08 15:57 | PN ---
Teaching Attending Note Name of Resident: Trevon Knott ATTENDING PHYSICIAN STATEMENT I saw and evaluated the patient. I reviewed the resident's note and discussed the case with the resident. I agree with the resident's findings and plan as documented. SUBJECTIVE: Improved epigastric abdominal pain/nausea/diarrhea. Vomiting resolving. No fever/chills. Complains of hemorrhoidal pain. No melena/ hematochezia. OBJECTIVE: Afebrile, Hemodynamically Stable. Last Vital Signs Temp Pulse Resp BP Pulse Ox 98.5 F 58 L 18 113/74 98 11/08/18 15:07 11/08/18 15:07 11/08/18 15:11/08/18 15:07 11/08/18 09:00 Heart - S1, S2, RRR Lungs - clear to auscultation Abdomen - soft, epigastric tenderness. Bowel Sounds normal. Extremities - No edema, no calf tenderness. Laboratory Results - last 24 hr 11/07/18 11/08/18 11/08/18 21:52 06:06 06:50 WBC 5.9 RBC 4.55 Hgb 11.8 Hct 36.4 MCV 80.1 MCH 25.9 MCHC 32.4 RDW 15.3 Plt Count 290 MPV 9.0 Absolute Neuts (auto) 2.6 Neutrophils % 43.0 Lymphocytes % 44.1 H Monocytes % 6.4 Eosinophils % 5.7 H Basophils % 0.8 Nucleated RBC % 0 Sodium Potassium Chloride Carbon Dioxide Anion Gap BUN Creatinine Est GFR (CKD-EPI)AfAm Est GFR (CKD-EPI)NonAf POC Glucometer 135 173 Random Glucose Calcium Phosphorus Magnesium Total Bilirubin AST ALT Alkaline Phosphatase Total Protein Albumin 11/08/18 11/08/18 06:50 11:19 WBC RBC Hgb Hct MCV MCH MCHC RDW Plt Count MPV Absolute Neuts (auto) Neutrophils % Lymphocytes % Monocytes % Eosinophils % Basophils % Nucleated RBC % Sodium 145 Potassium 4.0 Chloride 109 H Carbon Dioxide 29 Anion Gap 7 L BUN 7.2 Creatinine 0.9 Est GFR (CKD-EPI)AfAm 78.32 Est GFR (CKD-EPI)NonAf 67.57 POC Glucometer 283 Random Glucose 172 H Calcium 9.4 Phosphorus 2.8 Magnesium 2.0 Total Bilirubin 0.5 AST 23 ALT 44 Alkaline Phosphatase 84 Total Protein 6.1 L Albumin 3.3 L Discharge Medications Medication Instructions Recorded Acetaminophen [Tylenol -] 500 mg PO BID PRN 11/02/18 Aspirin 81 mg PO DAILY 11/02/18 Fluticasone Propionate [Flovent 2 spray IH DAILY 11/02/18 Diskus] Insulin (Levemir) [Levemir Vial] 70 unit SQ DAILY 11/02/18 Metformin HCl [Glucophage] 1,000 mg PO BID 11/02/18 Montelukast Sodium [Singulair] 10 mg PO HS 11/02/18 Omeprazole 40 mg PO DAILY 11/02/18 Glipizide/Metformin HCl 2 each PO BID 11/07/18 [Glipizide-Metformin 5-500 mg] ASSESSMENT AND PLAN: 63 year old female with history of Asthma, DM 2, Breast Cancer s/p lumpectomy, s /p hysterectomy, complains of epigastric pain/nausea/vomiting/diarrhea. 1. Viral Gastroenteritis +/- Gastritis Abdominal US - Cholelithiasis, contracted GB, Hepatic Steatosis Advance diet. Hold IV fluids. Stool Cx and Cdiff negative if tolerates advanced diet, can be discharged on PPI. 2. DM 2 - Uncontrolled, A1C 8.5. Can resume home diabetic regimen on discharge. PCP follow up for DM 2 maintenance. 3. Asthma - Stable. Continue Flovent Diskus and Montelukast. 4. Hemorrhoids - PrepH topical ointment. 5. Hypomagnesemia - repleted DVT Px - Lovenox SQ
== END 2018-11-08 15:42 | disposition home or self-care (01) | DRG 392 ==
LOC: JER 13:55 → JERBED 18:25 → J7W 20:46
PROVIDERS: ADMIT Internal Medicine
DX: K52.9 Noninfective gastroenteritis and colitis, unspecified (principal); A08.4 Viral intestinal infection, unspecified; J45.909 Unspecified asthma, uncomplicated; E11.65 Type 2 diabetes mellitus with hyperglycemia; E83.42 Hypomagnesemia; F32.9 Major depressive disorder, single episode, unspecified; I10 Essential (primary) hypertension; Z85.3 Personal history of malignant neoplasm of breast; K64.9 Unspecified hemorrhoids; K76.0 Fatty (change of) liver, not elsewhere classified; Z79.4 Long term (current) use of insulin; Z79.84 Long term (current) use of oral hypoglycemic drugs; K80.20 Calculus of gallbladder without cholecystitis without obstruction; Z90.710 Acquired absence of both cervix and uterus
CPT/HCPCS: 36415; 71046-TC-FY; 76705-TC; 80053; 81003; 82550; 82962; 83036; 83690; 83735; 84100; 84443; 84484; 85025; 87045; 87046; 87086; 87324; 87449; 93005; 93010; 97116-GP; 97161-GP; 99284-25

== ENCOUNTER 2021-03-31 04:40 | Day surgery (SDC) | payer OTHER ==
[2021-03-29 12:35] VITALS: BMI 27.4
[~2021-03-31 04:40] MED LIST: ACETAMINOPHEN 325 MG TABLET (FP) PO PRN
[2021-03-31] MEDS ORDERED: LIDOCAINE HCL/PF 1% SDV 5ML VIAL ONE (07:24)
[2021-03-31] MEDS ORDERED: POVIDONE-IODINE 5% OPHTHALMIC PREP 30 ML SOLUTION ONE (07:24)
[2021-03-31] MEDS ORDERED: TETRACAINE 0.5% OPHTH SOLN 2 ML BOTTLE ONE (07:28)
[2021-03-31] MEDS ORDERED: TROPICAMIDE 1% OPHTH SOLN 15 ML BOTTLE ONE (08:16)
[2021-03-31] MEDS ORDERED: CYCLOPENTOLATE HCL 1% OPHTH SOLN 2 ML BOTTLE ONE (08:17)
[2021-03-31] MEDS ORDERED: KETOROLAC TROMETHAMINE 0.5% EYE DROP 1 DROP DROPS ONE (08:17)
[2021-03-31] MEDS ORDERED: OFLOXACIN 0.3% OPHTHALMIC SOLUTION 5 ML BOTTLE ONE (08:17)
[2021-03-31] MEDS ORDERED: PHENYLEPHRINE 2.5% OPTHALMIC DROP BOTTLE ONE (08:17)
[2021-03-31] MEDS: CYCLOPENTOLATE HCL 1% OPHTH SOLN 2 ML BOTTLE OP SCH ×3 (08:20→08:40)
[2021-03-31] MEDS: TROPICAMIDE 1% OPHTH SOLN 15 ML BOTTLE OP SCH ×3 (08:20→08:40)
[2021-03-31] MEDS: KETOROLAC TROMETHAMINE 0.5% EYE DROP 1 DROP DROPS OP SCH ×3 (08:20→08:40)
[2021-03-31] MEDS: OFLOXACIN 0.3% OPHTHALMIC SOLUTION 5 ML BOTTLE OP SCH ×3 (08:20→08:40)
[2021-03-31] MEDS: PHENYLEPHRINE 2.5% OPHTH SOLN 15 ML BOTTLE OP SCH ×2 (08:20→08:40)
[2021-03-31] MEDS ORDERED: MIDAZOLAM HCL 2 MG/2 ML SINGLE DOSE VIAL ONE (10:32)
[2021-03-31] MEDS ORDERED: KETOROLAC TROMETHAMINE 30 MG/1 ML VIAL ONE (10:32)
[2021-03-31] MEDS ORDERED: TETRACAINE 0.5% OPHTH SOLN 2 ML BOTTLE TP ONE (10:36)
[2021-03-31] MEDS ORDERED: POVIDONE-IODINE 5% OPHTHALMIC PREP 30 ML SOLUTION OS ONE (10:37)
[2021-03-31] MEDS ORDERED: BSS (NA/CA/MG/K) BALANCED SALT SOLUTION OPHTH SOLN 15 ML BOTTLE OS ONE (10:42)
[2021-03-31] MEDS ORDERED: LIDOCAINE HCL 1% PRESERVATIVE FREE - 30ML VIAL IO ONE (10:45)
[2021-03-31] MEDS ORDERED: CHONDROITIN SU A/HYALUR SOD 1 KIT IO ONE (10:45)
[2021-03-31] MEDS ORDERED: EPINEPHrine/PF 1 MG/1 ML (1:1,000) AMPULE SQ ONE (10:53)
[2021-03-31 13:53] VITALS: BP 110/70; PULSE 73; TEMP 98.7
== END 2021-03-31 13:15 | disposition home or self-care (01) ==
LOC: JASU-SURG 04:40
PROVIDERS: ATTEND Ophthalmology
PROC: 08RK3JZ Replacement of Left Lens with Synthetic Substitute, Percutaneous Approach (ICD-10-PCS; principal; 2021-03-31 10:00)
DX: H26.9 Unspecified cataract (principal); E11.9 Type 2 diabetes mellitus without complications; J45.909 Unspecified asthma, uncomplicated
CPT/HCPCS: 82962

== ENCOUNTER 2021-04-13 04:41 | Day surgery (SDC) | payer OTHER ==
[2021-04-09 15:28] VITALS: BMI 30.2
[2021-04-13 08:30] VITALS: TEMP 97.5
[2021-04-13 09:08] VITALS: BP 107/67; PULSE 73
== END 2021-04-13 10:04 | disposition home or self-care (01) ==
LOC: JASU-ENDO 04:41
PROVIDERS: ATTEND Internal Medicine Gastroenterology
PROC: 0DJD8ZZ Inspection of Lower Intestinal Tract, Via Natural or Artificial Opening Endoscopic (ICD-10-PCS; principal; 2021-04-13 08:00)
DX: Z12.11 Encounter for screening for malignant neoplasm of colon (principal); K57.30 Diverticulosis of large intestine without perforation or abscess without bleeding; K64.8 Other hemorrhoids; Z86.010 Personal history of colon polyps
CPT/HCPCS: 82962

== ENCOUNTER → 2022-09-22 | Day surgery (SDC) | payer OTHER | END | disposition home or self-care (01) | LOC: FMAMMOTONE 11:11 | PROVIDERS: ATTEND Family Medicine | PROC: 0HBU3ZX Excision of Left Breast, Percutaneous Approach, Diagnostic (ICD-10-PCS; principal; 2022-09-22) | DX: R92.0 Mammographic microcalcification found on diagnostic imaging of breast (principal) | CPT/HCPCS: 19081; 76098-TC-FY; 87899; 88305-TC; 88341-TC; 88342-TC; A4648 ==

== ENCOUNTER → 2022-11-08 | Day surgery (SDC) | payer OTHER | END | disposition home or self-care (01) | LOC: JRADUS-SUR 09:52 | PROVIDERS: ATTEND Surgery Surgical Oncology | PROC: BH41ZZZ Ultrasonography of Left Breast (ICD-10-PCS; principal; 2022-11-08) | DX: R92.1 Mammographic calcification found on diagnostic imaging of breast (principal) | CPT/HCPCS: 19281; A4648 ==

== ENCOUNTER 2023-04-12 06:00 | Inpatient (IN) | payer OTHER ==
[2023-04-07 17:26] VITALS: BMI 27.1
[2023-04-12] MEDS ORDERED: BUPIVACAINE HCL/PF 0.25% (2.5MG/ML) 10 ML VIAL ONE (10:35)
[2023-04-12] MEDS ORDERED: LIDOCAINE HCL 1%, 10 MG/ML (20ML VIAL) ONE (10:35)
[2023-04-12] MEDS ORDERED: BUPIVACAINE HCL/PF 0.5% (5MG/ML) 10 ML VIAL ONE (10:35)
[2023-04-12] MEDS ORDERED: MIDAZOLAM HCL 2 MG/2 ML SINGLE DOSE VIAL ONE (11:47)
[2023-04-12] MEDS ORDERED: PROPOFOL 40 ML ONE (11:49)
[2023-04-12] MEDS ORDERED: SUCCINYLCHOLINE CHLORIDE 200 MG/10 ML SYRINGE ONE (11:50)
[2023-04-12] MEDS ORDERED: ROCURONIUM BROMIDE 50 MG/5 ML SYRINGE ONE (12:19)
[2023-04-12] MEDS: ceFAZolin SODIUM 1 GM VIAL IVPB ONE (12:26)
[2023-04-12] MEDS ORDERED: ceFAZolin SODIUM 1 GM VIAL ONE (12:27)
[2023-04-12] MEDS ORDERED: ONDANSETRON 4 MG/2 ML VIAL ONE ×2 (12:44→15:01)
[2023-04-12] MEDS ORDERED: DEXAMETHASONE SOD PHOSPHATE 4 MG/1 ML VIAL ONE (12:44)
[2023-04-12] MEDS ORDERED: BENZOIN/ALOE VERA/STORAX/TOLU 58 ML BOTTLE ONE (13:30)
[2023-04-12] MEDS ORDERED: ONDANSETRON 4 MG/2 ML VIAL IVPUSH PRN (14:02)
[2023-04-12] MEDS ORDERED: oxyCODONE HCL 5 MG TABLET PO PRN (14:02)
[2023-04-12] MEDS ORDERED: LACTATED RINGERS SOLUTION 1,000 ML IV SCH (14:15)
[2023-04-12] MEDS: ACETAMINOPHEN INJECTION 100 ML IVPB ONE (14:30)
[2023-04-12] MEDS: ACETAMINOPHEN 1000 MG/100 ML BAG IVPB ONE (14:30)
[2023-04-12] MEDS: ONDANSETRON 4 MG/2 ML VIAL IVPUSH PRN (15:03)
[2023-04-12] MEDS: LACTATED RINGERS SOLUTION 1,000 ML/1,000 ML INFUS.BAG IV SCH (16:21)
[2023-04-12] MEDS: ACETAMINOPHEN 325 MG TABLET (FP) PO SCH (16:22)
[2023-04-12] MEDS: oxyCODONE HCL 5 MG TABLET PO PRN (17:30)
[2023-04-12] MEDS: INSULIN ASPART SLIDING SCALE (NOVOLOG) 1 VIAL SQ SCH (17:31)
[2023-04-12] MEDS: CEFAZOLIN SODIUM 2 GM in DEXTROSE 5%-WATER 100 ML IVPB SCH (18:06)
[2023-04-12 21:21] VITALS: RESP 18
[2023-04-12] MEDS: INSULIN (LEVEMIR) 100 UNITS/ML UNITS SQ SCH (21:34)
[2023-04-13] MEDS: ACETAMINOPHEN 325 MG TABLET (FP) PO ONE (13:34)
[2023-04-13 16:08] VITALS: BP 110/61; PULSE 89; TEMP 98.2
== END 2023-04-13 13:58 | disposition home or self-care (01) | DRG 583 ==
LOC: JASUSAT 06:00 → J2C 10:06 → EDSTATUS 12:00 → J6S 16:17
PROVIDERS: ADMIT Surgery Surgical Oncology; ATTEND Internal Medicine
PROC: 0HTU0ZZ Resection of Left Breast, Open Approach (ICD-10-PCS; principal; 2023-04-12 12:00)
DX: C50.912 Malignant neoplasm of unspecified site of left female breast (principal); E11.9 Type 2 diabetes mellitus without complications; J45.909 Unspecified asthma, uncomplicated; I10 Essential (primary) hypertension
CPT/HCPCS: 82962; 88307-TC; 88341-TC; 94760; J0131

== ENCOUNTER 2023-10-17 04:27 | Day surgery (SDC) | payer OTHER ==
[2023-10-10 10:18] VITALS: BMI 30.1
[2023-10-17 09:15] VITALS: TEMP 98.2
[2023-10-17 09:23] VITALS: RESP 18
[2023-10-17 10:29] VITALS: BP 112/74; PULSE 70
== END 2023-10-17 10:30 | disposition home or self-care (01) ==
LOC: JASU-ENDO 04:27
PROVIDERS: ATTEND Internal Medicine Gastroenterology
PROC: 0DB68ZX Excision of Stomach, Via Natural or Artificial Opening Endoscopic, Diagnostic (ICD-10-PCS; 2023-10-17)
PROC: 0DB78ZX Excision of Stomach, Pylorus, Via Natural or Artificial Opening Endoscopic, Diagnostic (ICD-10-PCS; 2023-10-17)
PROC: 0DB98ZX Excision of Duodenum, Via Natural or Artificial Opening Endoscopic, Diagnostic (ICD-10-PCS; principal; 2023-10-17 08:45)
DX: K31.7 Polyp of stomach and duodenum (principal); K29.80 Duodenitis without bleeding; K29.50 Unspecified chronic gastritis without bleeding; K31.89 Other diseases of stomach and duodenum; I10 Essential (primary) hypertension; E11.9 Type 2 diabetes mellitus without complications; Z79.84 Long term (current) use of oral hypoglycemic drugs; Z79.85 Long-term (current) use of injectable non-insulin antidiabetic drugs
CPT/HCPCS: 82962; 88305-TC; 88342-TC

== ENCOUNTER 2024-04-10 11:26 | Emergency (ER) | payer OTHER ==
[2024-04-10 11:46] VITALS: BP 122/81; PULSE 74; RESP 20; TEMP 98.2; BMI 29.6
[2024-04-10 13:11] LABS: HEMATOCRIT 44.7 % (32.4-45.2); HEMOGLOBIN 14.8 G/dL (10.7-15.3); MCH 27.2 pg (25.7-33.7); MEAN CELL VOLUME 82.3 fl (80-96); MEAN PLT VOLUME 8.8 fl (7.5-11.1); PLATELET COUNT 278.6 10^3/uL (134-434); RBC 5.43 10^6/uL (3.60-5.2); RDW 16.2 % (11.6-15.6); WHITE BLOOD COUNT 6.8 10^3/uL (4.0-10.8)
[2024-04-10 13:15] LABS: ALBUMIN 4.2 g/dl (3.4-5.0); BILIRUBIN,TOTAL 0.4 mg/dl (0.2-1); CALCIUM 10.2 mg/dl (8.5-10.1); CREATININE 0.9 mg/dl (0.6-1.3)
[2024-04-10 13:18] LABS: PLATELET ESTIMATE ADEQUATE
[2024-04-10 14:12] LABS: VENOUS BASE EXCESS 1.1 mmol/L (-2-2); VENOUS O2 SATURATION 70.4 % (70-80); VENOUS PCO2 48.5 mmHg (38-52); VENOUS PH 7.366 (7.310-7.410)
== END 2024-04-10 15:37 | disposition home or self-care (01) ==
LOC: FER 11:26
DX: R11.10 Vomiting, unspecified (principal); T50.8X5A Adverse effect of diagnostic agents, initial encounter
CPT/HCPCS: 36415; 80053; 82010; 82550; 82803; 82962; 84484; 85025; 93005; 99284-25